=== PATIENT | female | born 1980 | race Caucasian/White ===

== ENCOUNTER → 2017-03-19 | Outpatient (CLI) | payer OTHER, BC | LOC: RAD 14:15 | DX: M41.84 Other forms of scoliosis, thoracic region (principal) ==

== ENCOUNTER 2017-08-12 15:16 | Inpatient (IN) | payer OTHER, BC ==
[~2017-08-12] VITALS: Ht 170.2 cm; Wt 71.2 kg
--- NOTE | ~2017-08-12 | P ---
[facility] [place] [address] PROCEDURE REPORT Name: DERIK REYNOLDSICA Room #: 417-I [facility] IN .R.#: [id number] Admission: 08/12/17 Attend Phys: Pernell Freed MD Discharge: 08/14/17 Date of : 84 Report #: [id number] THIS REPORT FOR: //name// CC: Louis Freed DATE OF SERVICE: 08/13/2017 BRIEF HISTORY: The patient is a 37-year-old woman who was admitted with protracted nausea and vomiting and 10 pound weight loss. PREOPERATIVE DIAGNOSIS: Persistent nausea and vomiting. POSTOPERATIVE DIAGNOSIS: Moderate diffuse gastritis. MEDICATIONS: Deep sedation with propofol per anesthesia. SPECIMEN: Biopsies of gastritis. ESTIMATED BLOOD LOSS: 3 mL PROCEDURE: Esophagogastroduodenoscopy with biopsy findings. Prior to propofol sedation, procedure of upper endoscopy was discussed with the patient as well as potential risks and its complications. She indicates she understands and desires to proceed. DESCRIPTION OF PROCEDURE: With the patient in left lateral decubitus position, the Fuji video endoscope was inserted in the cervical esophagus under direct vision without difficulty. Examination of this organ through its entire length revealed normal esophageal mucosa down the squamocolumnar junction. Squamocolumnar junction was inspected and noted to be unremarkable. No ulcers or erosions were seen. A hiatus hernia was not seen. Scope was advanced in the stomach, which was examined on end view as well as retroflexed views. There was a pattern of diffuse gastritis with linear striations in the antrum of the stomach. No ulcers were seen. There was no evidence of outlet obstruction. There are no retained solids or liquids in the stomach. Upon retroflexion, no abnormalities were seen. In specific, hiatus hernia or mass lesion was not seen. The pylorus, duodenal bulb, postbulbar duodenal down to the fourth portion of duodenum was inspected and noted to be unremarkable. There is no evidence of gastric outlet obstruction. At that point, the scope was slowly withdrawn and careful circumferential views confirmed the above findings. The patient tolerated the procedure well. Biopsies were obtained of the gastritis. DISPOSITION: The patient with protracted nausea and vomiting and she also reports weight loss. I do not see any evidence of significant gastrointestinal [address] [address] PROCEDURE REPORT Name: DANITA REYNOLDS Room #: 417-I [facility] IN ..#: [id number] Admission: 08/12/17 Attend Phys: Pernell Freed MD Discharge: 08/14/17 Date of : 84 Report #: [id number] disease, which would cause those symptoms. She is currently receiving ondansetron and we will continue that medication. She is also on pantoprazole and we will continue that medication as well. We will start on a clear liquid diet and see how she tolerates diet. It is noted that she does have gallstones, but the gallbladder is normal without thickening or evidence of obstruction. Symptoms are somewhat atypical, but if they persists, a cholecystectomy may be a consideration, although nausea and vomiting without pain would be unusual. We will see how she does with the symptomatic treatment at this time. <ELECTRONICALLY SIGNED> By: Didier Lemus MD 08/15/17 [id number] Didier Lemus MD /nt
[2017-08-12 15:36] VITALS: BP 148/87
[2017-08-12] MEDS ORDERED: PROZAC20 MG PO (15:54)
[2017-08-12] MEDS ORDERED: XANAX 0.5 MG0.5 MG PO (15:54)
[2017-08-12 16:10] LABS: ABSOLUTE NEUTROPHILS 6.1 thou/uL (1.4-8.2); BASOPHILS 0.3 % (0.0-2.0); EOSINOPHILS 1.7 % (0.0-3.0); HEMATOCRIT 39.3 % (37.0-47.0); HEMOGLOBIN 13.2 gm/dL (12.0-15.0); LYMPHOCYTES 20.2 % (24.0-44.0); MCH 31.3 pg (26.0-34.0); MCHC 33.7 g/dL (28.0-37.0); MCV 92.8 fL (80.0-100.0); MONOCYTES 4.6 % (1.0-8.0); PLATELET COUNT 255 thou/uL (150-400); POLYS 73.2 % (36.0-66.0); RBC 4.23 mil/uL (4.20-5.00); RDW 13.4 % (10.5-14.5); WBC 8.4 thou/uL (4.0-11.0)
[2017-08-12 16:10] LABS: URINE BILIRUBIN NEGATIVE (Negative); URINE BLOOD 3+ (Negative); URINE CLARITY CLEAR; URINE COLOR YELLOW; URINE GLUCOSE-RANDOM* NEGATIVE (Negative); URINE KETONES 3+ (Negative); URINE LEUKOCYTES-REFLEX NEGATIVE (Negative); URINE NITRITE-REFLEX NEGATIVE (Negative); URINE PROTEIN (DIPSTICK) NEGATIVE (Negative); URINE UROBILINOGEN 0.2 E.U./dl (0.2-1.0)
[2017-08-12 16:13] LABS: URINE REDUCING SUBSTANCE NEGATIVE
[2017-08-12 16:16] LABS: ANION GAP 14 mmol/L (7-16); BUN 8 mg/dL (7-18); CALCIUM 9.1 mg/dL (8.5-10.1); CHLORIDE 100 mmol/L (98-107); CO2 23 mmol/L (21-32); GLUCOSE 73 mg/dL (74-106); POTASSIUM 3.4 mmol/L (3.5-5.1); SODIUM 137 mmol/L (136-145)
[2017-08-12 16:17] LABS: AMP/METHAMP Negative (Negative); BARBITURATES Negative (Negative); BENZODIAZEPINES Negative (Negative); COCAINE Negative (Negative); METHADONE Negative (Negative); OPIATES Negative (Negative); PCP Negative (Negative)
[2017-08-12 16:22] LABS: SALICYLATE 4.2 mg/dL (2.8-20.0); SGOT 15 U/L (15-37); SGPT 15 U/L (30-65); TOTAL BILIRUBIN 1.1 mg/dL (<0.1-1.0); TOTAL PROTEIN 8.3 g/dL (6.4-8.2)
[2017-08-12 16:23] LABS: BACTERIA-REFLEX 1-9 Few /HPF (None Seen); CASTS None Seen /LPF (None Seen); CRYSTALS None Seen /LPF (None Seen); SQUAMOUS 4-10 Moderate /LPF (0-3); URINE RBC 0-2 Rare /HPF (0-2); URINE WBC-REFLEX 0-5 Rare /HPF (0-5)
[2017-08-12 17:41] VITALS: BP 125/68
[2017-08-12 18:01] VITALS: BP 112/72
[2017-08-12 18:12] VITALS: BP 124/65
[2017-08-12 19:00] VITALS: BP 129/68
[2017-08-13 03:55] VITALS: BP 117/67
[2017-08-13 06:12] LABS: CALCIUM 8.4 mg/dL (8.5-10.1); CREATININE 0.8 mg/dL (0.6-1.0); POTASSIUM 3.9 mmol/L (3.5-5.1)
[2017-08-13 07:35] VITALS: BP 129/75
[2017-08-13 16:00] VITALS: BP 123/81
[2017-08-13 20:00] VITALS: BP 140/79
[2017-08-14 04:30] VITALS: BP 113/70
[2017-08-14] MEDS ORDERED: PEPCID20 MG PO (07:54)
[2017-08-14] MEDS ORDERED: REMERON15 MG PO (07:55)
[2017-08-14 10:00] VITALS: BP 113/70
[2017-08-14 12:06] VITALS: BP 113/70
[2017-08-14 12:49] VITALS: BP 113/70
[2017-08-14 13:58] VITALS: BP 113/70
== END 2017-08-14 14:54 | disposition home or self-care (01) | DRG 392 ==
LOC: ER 15:16 → EROBS 17:00 → 4E 17:00 → ENTRNSPT 08-14 14:28 → EDTRNSPTSTS 08-14 14:32 → 4E 08-14 14:54
PROVIDERS: Emergency Medicine; Family Medicine
PROC: 0DB68ZX Excision of Stomach, Via Natural or Artificial Opening Endoscopic, Diagnostic (ICD-10-PCS; principal; 2017-08-13)
DX: K29.70 Gastritis, unspecified, without bleeding (principal); N17.9 Acute kidney failure, unspecified; F41.9 Anxiety disorder, unspecified; E86.0 Dehydration; F32.9 Major depressive disorder, single episode, unspecified; F17.210 Nicotine dependence, cigarettes, uncomplicated; K21.9 Gastro-esophageal reflux disease without esophagitis; K80.20 Calculus of gallbladder without cholecystitis without obstruction; R63.4 Abnormal weight loss; Z68.24 Body mass index [BMI] 24.0-24.9, adult; Z79.899 Other long term (current) drug therapy
CPT/HCPCS: 10084; 62110; 62900; 70005